=== PATIENT | male | born 1955 | race Caucasian/White ===

== ENCOUNTER 2016-10-13 10:11 | Emergency (ER) | payer OTHER ==
[~2016-10-13] VITALS: Ht 172.7 cm; Wt 79.4 kg
[~2016-10-13 10:11] MED LIST: CHOLESTEROL PILL; NAPROSYN500 MG PO; PERCOCET 5-3251 EACH PO
[2016-10-13 11:30] VITALS: BP 157/84
== END 2016-10-13 11:30 | disposition home or self-care (01) ==
LOC: ER 10:11
DX: S61.011A Laceration without foreign body of right thumb without damage to nail, initial encounter (principal); W26.8XXA Contact with other sharp object(s), not elsewhere classified, initial encounter; Y93.89 Activity, other specified; Y92.89 Other specified places as the place of occurrence of the external cause; Y99.8 Other external cause status

== ENCOUNTER 2017-05-19 16:58 | Emergency (ER) | payer OTHER ==
[~2017-05-19] VITALS: Ht 172.7 cm; Wt 81.7 kg
[2017-05-19] MEDS ORDERED: CRESTOR20 MG PO (17:21)
[2017-05-19] MEDS ORDERED: CENTRUM SILVER1 EAC2 PO (17:22)
[2017-05-19 18:25] VITALS: BP 143/75
== END 2017-05-19 18:26 | disposition home or self-care (01) ==
LOC: ER 16:58
DX: S16.1XXA Strain of muscle, fascia and tendon at neck level, initial encounter (principal); S00.11XA Contusion of right eyelid and periocular area, initial encounter; S00.81XA Abrasion of other part of head, initial encounter; E78.00 Pure hypercholesterolemia, unspecified; Z87.891 Personal history of nicotine dependence; W11.XXXA Fall on and from ladder, initial encounter; Y93.89 Activity, other specified; Y92.89 Other specified places as the place of occurrence of the external cause; Y99.8 Other external cause status

== ENCOUNTER → 2020-09-08 | Outpatient (CLI) | payer OTHER ==
[~2020-09-08] MED LIST changes: +CENTRUM SILVER1 EAC2 PO; +CRESTOR20 MG PO; +IBU800 MG PO; +MEDROL DOSPAK21 TA1 PO; +NEURONTIN 300M300 M2 PO; +SENNA PLUS TAB1 EACH PO
== END ==
LOC: ULTRA 09:19
PROVIDERS: ATTEND Family Medicine
DX: N28.1 Cyst of kidney, acquired (principal); R17 Unspecified jaundice

== ENCOUNTER 2020-09-11 11:55 | Inpatient (IN) | payer OTHER ==
[~2020-09-11] VITALS: Ht 172.7 cm; Wt 65.8 kg
[~2020-09-11 11:55] MED LIST changes: -IBU800 MG PO; -MEDROL DOSPAK21 TA1 PO; -NEURONTIN 300M300 M2 PO; -SENNA PLUS TAB1 EACH PO
[2020-09-11 11:58] VITALS: BP 138/75
[2020-09-11] MEDS ORDERED: MEDROL DOSPAK21 TA1 PO (12:03)
--- NOTE | 2020-09-11 13:30 | NUR ---
MEDS HAVE NOT BEEN AVAILABLE IN [place] TO REMOVE, PHARMACY NOTIFIED, WILL GIVE MEDS WHEN AVAILABLE & PROVIDER AT BEDSIDE TO REDUCE HERNIA. PT DENIES ANY NEEDS AT THIS TIME, CALL LIGHT IN REACH
[2020-09-11 14:47] VITALS: BP 124/80
[2020-09-11 14:55] LABS: HEMATOCRIT 42.2 % (42.0-52.0); HEMOGLOBIN 14.7 gm/dL (14.0-18.0); MCH 33.9 pg (26.0-34.0); MCHC 34.8 g/dL (28.0-37.0); MCV 97.6 fL (80.0-100.0); RBC 4.33 mil/uL (4.50-6.00); RDW 13.7 % (10.5-14.5); WBC 6.9 thou/uL (4.0-11.0)
[2020-09-11 15:02] LABS: CALCIUM 9.1 mg/dL (8.5-10.1); CREATININE 0.9 mg/dL (0.7-1.3); POTASSIUM 3.9 mmol/L (3.5-5.1)
[2020-09-11 15:09] LABS: ALBUMIN 4.1 g/dL (3.4-5.0); TOTAL BILIRUBIN 1.4 mg/dL (0.2-1.0); TOTAL PROTEIN 6.9 g/dL (6.4-8.2)
[2020-09-11] MEDS ORDERED: SENNA PLUS TAB1 EACH PO (16:52)
[2020-09-11] MEDS ORDERED: IBU800 MG PO (16:52)
[2020-09-11] MEDS ORDERED: PERCOCET 5-3251 EACH PO (16:52)
[2020-09-11] MEDS ORDERED: NEURONTIN 300M300 M2 PO (16:52)
[2020-09-11 17:16] VITALS: BP 124/80
--- NOTE | 2020-09-15 10:47 | O ---
[facility] [place] [address] OPERATIVE REPORT Name: ANSELMO BLOCK Room #: 150-1 [facility] IN M.R.#: [id number] Admission: 09/11/20 Attend Phys: Davy Daigle MD, Discharge: 09/11/20 Date of : 53 Report #: [id number] THIS REPORT FOR: cc: Waqar Bowen Alan Z. DO Soliman,Davy Rubin MD FACS ~ DATE OF SERVICE: 09/11/2020 PREOPERATIVE DIAGNOSIS: Incarcerated recurrent right inguinal hernia. POSTOPERATIVE DIAGNOSIS: Incarcerated recurrent right inguinal hernia. PROCEDURE PERFORMED: Laparoscopic transabdominal preperitoneal (ELI) repair of an incarcerated recurrent right inguinal hernia with mesh. SURGEON: Davy Daigle MD CEO & FOUNDER: None. ANESTHESIA: General endotracheal anesthesia. ESTIMATED BLOOD LOSS: Minimal (Less than 5 mL). COMPLICATIONS: None appreciated. SPECIMENS: None. 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 The patient had exquisite pain with this and as such presented to the Emergency Room where multiple attempts at reduction by the Emergency Room personnel were undertaken. As such, I was asked to evaluate and due to the high risk of incarcerated bowel with concern for possible early ischemic changes, indication was for urgent operative intervention today. DESCRIPTION OF PROCEDURE: After explaining the risks, benefits and alternatives of the procedure with the patient in detail in the preoperative holding area and obtaining consent, the patient was brought to the operating room and placed supine on the operating table. After conducting a thorough timeout procedure, verifying correct patient and procedure, the patient was given general endotracheal anesthesia. Once adequate anesthesia was obtained, his SCDs were hooked up to pneumatic compression device. He was given a preoperative dose of antibiotics in line with the SCIP protocol. The patient's abdomen was now prepped and draped in a standard surgical sterile fashion. 5 mL of 0.5% [facility] [address] [place] [address] OPERATIVE REPORT Name: ANSELMO BLOCK Room #: 150-1 [facility] IN M.R.#: [id number] Admission: 09/11/20 Attend Phys: Davy Daigle MD, Discharge: 09/11/20 Date of : 53 Report #: [id number] Marcaine with epinephrine were used to anesthetize the skin in supraumbilical location. A #15 bladed scalpel was used to create a 1 cm transverse skin incision at this location. An 11 mm Visiport was placed over 0-degree 5 mm laparoscope and was introduced through this incision site. Once intraabdominal placement was verified visually, the obturator for the trocar and laparoscope were both removed and the abdomen was insufflated to 15 mmHg using carbon dioxide gas. The laparoscope was changed to a 5 mm 30-degree laparoscope, which was reintroduced through this trocar. The entire abdomen was evaluated to ensure no injury upon entry. We immediately identified an incarcerated small bowel contained within the recurrent right inguinal hernia. I now placed two 5 mm working trocars, 1 in the left flank, 1 in the right flank, both 2 cm cephalad to the umbilicus at the anterior axillary line on each side. Both were placed under direct vision after anesthetizing the skin at each location with 5 mL of 0.5% Marcaine with epinephrine. I created appropriately sized skin nicks using #15 bladed scalpel. The patient was now placed in steep Trendelenburg position with the right side elevated, and I proceeded to attempt to reduce the incarcerated small bowel. This was unsuccessful as it was exquisitely incarcerated and as such hook electrocautery was used to open the abdominal wall anteriorly all the while protecting the bowel to ensure no injury upon thermal spread. Once I had opened this approximately 0.5 cm, it allowed for complete reduction of the bowel, which upon initial evaluation showed significant ischemic changes, although no evidence of perforation, enterotomy or overt serosal damage. The bowel was left low in the pelvis to reperfuse while I turned my attention to operative repair of the recurrent hernia. Hook electrocautery was now used to score the peritoneum from the posterior aspect of the anterior superior iliac spine medially. I now created a preperitoneal plane using hook electrocautery, carried low in the abdominal wall. I was able to separate the peritoneum from the previously placed synthetic mesh and was able to carry this dissection as low in the pelvic brim as possible ensuring no injury to the cord structures as all cord structures were conclusively identified, preserved and uninjured throughout. Luckily, this was a direct hernia defect that was recurrent and now that I had carried this dissection as low in the pelvic brim, I selected a piece of ProGrip mesh tailored to the right groin. This was rolled up, placed in the abdomen through the 11 mm port, whereby it was maneuvered into position. This was then pressed into the abdominal wall and unrolled inferiorly giving me excellent overlap outside of the recurrent direct defect as well as the indirect space. The SecureStrap absorbable fixation device was used to anchor this to the pubic tubercle just for additional security and the peritoneum was reperitonealized using the SecureStrap absorbable fixation device to ensure no mesh exposure to the intraabdominal domain. Photodocumentation of each step in the process was taken and provided to the patient and the permanent medical record. The small bowel was now evaluated showing complete perfusion as it had pinked up nicely. There was one area of a questionable serosal defect versus adhesion and to be safe, a 3-0 PDS suture was now used to place 3 separate Lembert sutures longitudinally [address] [address] OPERATIVE REPORT Name: ANSELMO BLOCK PATIENCE Room #: 150-1 [facility] IN ..#: [id number] Admission: 09/11/20 Attend Phys: Davy Daigle MD, Discharge: 09/11/20 Date of : 53 Report #: [id number] so as not to narrow the bowel in any way. These were done laparoscopically without issue. Now that we were happy with the repair and the bowel was healthy and uninjured, the laparoscope was removed, changed to the right flank 5 mm port. I proceeded to close the supraumbilical fascial incision using 0 PDS suture on the Bladimir-Denise suture passer device under direct vision. This was tied down to ensure no omentum or bowel was trapped in the suture repair. Final evaluation of the intraabdominal domain showed no further ongoing pathology. The abdomen was fully desufflated, trocars were removed under direct vision. A 4-0 Monocryl was now used in a standard subcuticular fashion for all skin incisions and Dermabond glue was applied to all skin wounds. At the end of the procedure, all instrument, needle and sponge counts were correct. The patient tolerated the procedure without incident, was awakened in the operating room and transitioned to the recovery room in stable condition with no apparent complications. <ELECTRONICALLY SIGNED> By: Davy Daigle MD, FACS 09/15/20 [id number] Davy Daigle MD, FACS /nt
== END 2020-09-11 16:53 | disposition home or self-care (01) | DRG 352 ==
LOC: ER 11:55 → TBA 14:54
PROVIDERS: Nurse Practitioner Family; ADMIT Surgery; ATTEND Surgery
PROC: 0YU54JZ Supplement Right Inguinal Region with Synthetic Substitute, Percutaneous Endoscopic Approach (ICD-10-PCS; principal; 2020-09-11)
DX: K40.31 Unilateral inguinal hernia, with obstruction, without gangrene, recurrent (principal); Z87.891 Personal history of nicotine dependence; Z20.822 Contact with and (suspected) exposure to COVID-19
CPT/HCPCS: 50010; 50101; 50411; 50555; 50944; 50984; 52265; 52266; 54022; 54118; 54169; 56462; 56525; 56526; 56530; 58574; 58910; 62110; 62900; 70005